=== PATIENT | male | born 1990 | race Caucasian/White ===

== ENCOUNTER → 2018-01-03 | Outpatient (CLI) | payer SELFPAY ==
--- NOTE | 2018-01-03 18:55 | RADIOLOGY IMAGING REPORT ---
[place]AC[place] [facility] [place] NAME: Jeyson Sahu : 1990 MR: [id number] V: [id number] EXAM DATE: ORDERING PHYSICIAN: PAIGE DENTON TECHNOLOGIST: Location: [facility] Patient: Jeyosn Sahu : 1990 Visit/Account:[id number] Date of Sevice: 01/03/2018 ELBOW 2 VIEW LEFT HISTORY: Normal elbow. Extreme pain. FINDINGS: Two-view examination of the left elbow demonstrates no obvious acute fracture. The faintly potential linear lucency traversing through the base of the radial head can be potentially perceived. The dista l left humerus and proximal radius/ulna are well-maintained and aligned. There is a large joint effus ion noted. IMPRESSION: 1. With a large joint effusion or fractures certainly suspected. There is a potentially perceived sub tle fracture through the raise the radial head. Recommend clinical correlation and appropriate follow -up. Report Dictated By: Cory Small MD at 01/03/2018 6:46 PM Report E-Signed By: Cory Small MD at 01/03/2018 6:51 PM [id number]
== END ==
LOC: RAD 18:14
PROVIDERS: ATTEND Chiropractor
DX: M25.422 Effusion, left elbow (principal)